=== PATIENT | female | born 1970 | race Caucasian/White ===

== ENCOUNTER 2019-06-30 08:16 | Outpatient (CLI) | payer OTHER, SELFPAY ==
--- NOTE | 2019-06-30 08:23 | MM_ITS ---
WS: [id number] BILATERAL DIGITAL SCREENING MAMMOGRAPHY WITH CAD CLINICAL INFORMATION: SCREENING HISTORY: Screening mammogram. No current complaints. COMPARISON: June 03, 2018 TECHNIQUE: Bilateral CC and MLO views. FINDINGS: Scattered fibroglandular densities bilaterally. No suspicious focal mass, asymmetry, calcifications, or architectural distortion. No evidence of malignancy. MM/[id number] IMPRESSION: BI-RADS: 1-Negative FOLLOW UP: 1 Year Follow-up Recommend return to annual screening mammography.
== END 2019-06-30 08:17 | disposition home or self-care (01) ==
LOC: RADSHAW 08:21
PROVIDERS: PCP Nurse Practitioner Family; Visit Provider Nurse Practitioner Family
DX: Z12.31 Encounter for screening mammogram for malignant neoplasm of breast (principal)
CPT/HCPCS: 77067

== ENCOUNTER 2020-09-28 15:07 | Outpatient (CLI) | payer OTHER, SELFPAY ==
--- NOTE | 2020-09-28 15:16 | MM_ITS ---
WS: [id number] BILATERAL DIGITAL SCREENING MAMMOGRAPHY WITH CAD CLINICAL INFORMATION: SCREENING HISTORY: Screening mammogram. No current complaints. COMPARISON: June 30, 2019 TECHNIQUE: Bilateral CC and MLO views. FINDINGS: Scattered fibroglandular densities bilaterally. Stable nodular breast tissue upper outer right breast . No suspicious focal mass, asymmetry, calcifications, or architectural distortion. No evidence of ma lignancy. MM/[id number] IMPRESSION: BI-RADS: 2-Benign FOLLOW UP: 1 Year Follow-up Recommend return to annual screening mammography.
== END 2020-09-28 15:08 | disposition home or self-care (01) ==
LOC: RADSHAW 15:11
PROVIDERS: Family Provider Nurse Practitioner Family; PCP Nurse Practitioner Family; Visit Provider Nurse Practitioner Family
DX: Z12.31 Encounter for screening mammogram for malignant neoplasm of breast (principal)
CPT/HCPCS: 77067

== ENCOUNTER → 2021-03-21 16:05 | Outpatient (BNVA) | payer OTHER, SELFPAY | PROVIDERS: Family Provider Nurse Practitioner Family; PCP Nurse Practitioner Family; Visit Provider Family Medicine | DX: M25.561 Pain in right knee (principal); M17.11 Unilateral primary osteoarthritis, right knee | CPT/HCPCS: 73562 ==

== ENCOUNTER 2021-11-25 11:47 | Outpatient (CLI) | payer OTHER, SELFPAY ==
--- NOTE | 2021-11-25 12:05 | MM_ITS ---
WS: [id number] Bilateral screening 3D tomosynthesis digital mammogram, 11/25/2021 Clinical Data: SCREENING Comparison: 09/28/2020, 06/30/2019, 06/03/2018, 02/08/2017, 07/24/2016, 01/13/2016, 07/08/2015, 01/05/2015, , 07/29/2013. Findings: The breast parenchymal pattern shows fibroglandular tissue No spiculated masses or clustered calcific ations are seen. There are no secondary signs of carcinoma. MM/[place] [id number] Impression: 1. Negative bilateral mammogram unchanged. 2. Recommend annual screening mammograms. BIRADS: 1-Negative FOLLOW UP: 1 Year Follow-up The CAD warehouse checker was used.
== END 2021-11-25 11:48 | disposition home or self-care (01) ==
PROVIDERS: PCP Nurse Practitioner Family; Visit Provider Nurse Practitioner Family
DX: Z12.31 Encounter for screening mammogram for malignant neoplasm of breast (principal)
CPT/HCPCS: 77063; 77067

== ENCOUNTER 2022-11-28 10:05 | Outpatient (CLI) | payer OTHER, SELFPAY ==
--- NOTE | 2022-11-28 10:12 | MM_ITS ---
WS: [id number] BILATERAL 3D TOMOSYNTHESIS DIGITAL SCREENING MAMMOGRAPHY WITH CAD CLINICAL INFORMATION: SCREENING HISTORY: Screening mammogram. No current complaints. COMPARISON: November 25, 2021 TECHNIQUE: Bilateral CC and MLO views. FINDINGS: Scattered fibroglandular densities bilaterally. No suspicious focal mass, asymmetry, calcifications, or architectural distortion. No evidence of malignancy. MM/[place] [id number] IMPRESSION: BI-RADS: 1-Negative FOLLOW UP: 1 Year Follow-up Recommend return to annual screening mammography.
== END 2022-11-28 10:06 | disposition home or self-care (01) ==
PROVIDERS: PCP Nurse Practitioner Family; Visit Provider Nurse Practitioner Family
DX: Z12.31 Encounter for screening mammogram for malignant neoplasm of breast (principal)
CPT/HCPCS: 77063; 77067

== ENCOUNTER 2023-12-07 07:31 | Outpatient (CLI) | payer OTHER, SELFPAY ==
--- NOTE | 2023-12-07 07:36 | MM_ITS ---
WS: [id number] SCREENING DIGITAL BREAST TOMOSYNTHESIS MAMMOGRAM WITH CAD HISTORY: SCREENING COMPARISON: 11/28/2022, 11/25/2021, 09/28/2020 Bilateral CC and MLO with tomosynthesis and synthetic mammography submitted. Computer aided detection analyzed. Breast composition: There are scattered areas of fibroglandular density. Mild distortion and asymmetr y in the upper outer quadrant RIGHT breast at middle depth. Similar to prior studies with slight dist ortion. There is a new asymmetry in the medial LEFT breast which is just above the nipple line. Asymm etry measures 10 x 4 mm. No suspicious grouping of calcifications. MM/[place] [id number] IMPRESSION: BI-RADS: 0-Incomplete: Need additional imaging evaluation FOLLOW UP: Need Additional Imaging RIGHT breast: Spot compression views (CC and MLO). True ML. Ultrasound to follo w if abnormality persists. LEFT breast: Spot compression views (CC and MLO). True ML. Ultrasound to follow if abnormality persists.
== END 2023-12-07 07:32 | disposition home or self-care (01) ==
LOC: RAD 07:31
PROVIDERS: PCP Nurse Practitioner Family; Visit Provider Nurse Practitioner Family
DX: Z12.31 Encounter for screening mammogram for malignant neoplasm of breast (principal); R92.323 Mammographic fibroglandular density, bilateral breasts; N64.89 Other specified disorders of breast
CPT/HCPCS: 77063; 77067

== ENCOUNTER 2024-01-21 08:47 | Outpatient (CLI) | payer OTHER, SELFPAY ==
--- NOTE | 2024-01-21 08:49 | MM_ITS ---
WS: [id number] ADDITIONAL VIEWS BILATERAL MAMMOGRAM WITH DIGITAL BREAST TOMOSYNTHESIS. RIGHT breast ultrasound, limited. HISTORY: ABNORMAL MAMMOGRAM COMPARISON: None available. Spot compression views bilateral breast in CC, MLO projections and true ML submitted with digital [place] [facility] tomosynthesis and SM. Breast composition: There are scattered areas of fibroglandular density. RIGHT: Asymmetry persists but becomes less distorted in the upper outer quadrant. LEFT: Focal asymmetry resolves with additional imaging. RIGHT breast ultrasound, limited. Dense fibroglandular tissue in the upper outer quadrant but no mass or distortion. There is a simple cyst measuring 0.4 x 0.5 x 0.4 cm at 9:00, 6 cm from the nipple. MM/[id number] IMPRESSION: BI-RADS: 2 - Benign. FOLLOW UP: 1 Year Follow-up
== END 2024-01-21 08:48 | disposition home or self-care (01) ==
LOC: RAD 08:48
PROVIDERS: PCP Nurse Practitioner Family; Visit Provider Nurse Practitioner Family
DX: R92.8 Other abnormal and inconclusive findings on diagnostic imaging of breast (principal); R92.323 Mammographic fibroglandular density, bilateral breasts; N64.89 Other specified disorders of breast
CPT/HCPCS: 76641; 77062; G0279

== ENCOUNTER 2025-04-01 10:55 | Outpatient (CLI) | payer OTHER, SELFPAY ==
--- NOTE | 2025-04-01 11:00 | MM_ITS ---
WS: [id number] SCREENING DIGITAL TOMOSYNTHESIS MAMMOGRAM WITH CAD HISTORY: SCREENING COMPARISON: 12/07/2023, 01/21/2024, 11/28/2022, 11/25/2021 Bilateral CC and MLO with tomosynthesis views submitted. Synthetic mammography reviewed. Computer aided detection analyzed. Breast composition: There are scattered areas of fibroglandular density. No suspicious masses, microcalcifications or architectural distortion. Lobulated mass in the upper outer quadrant of the LEFT breast at a posterior depth has been present on multiple prior exams and is probably a lymph node. Benign calcifications. MM/MM scr [place] tomosynthesis [id number] IMPRESSION: BI-RADS: 2 - Benign. FOLLOW UP: 1 Year Follow-up
== END 2025-04-01 10:56 | disposition home or self-care (01) ==
LOC: MOBLMAM 10:58
PROVIDERS: PCP Nurse Practitioner Family; Visit Provider Nurse Practitioner Family
DX: Z12.31 Encounter for screening mammogram for malignant neoplasm of breast (principal); R92.323 Mammographic fibroglandular density, bilateral breasts; N63.21 Unspecified lump in the left breast, upper outer quadrant; R92.1 Mammographic calcification found on diagnostic imaging of breast
CPT/HCPCS: 77063; 77067